=== PATIENT | female | born 1955 | race Caucasian/White ===

== ENCOUNTER 2017-10-06 16:27 | Emergency (ER) | payer OTHER ==
[2017-10-06 17:03] VITALS: BP 114/73; PULSE 90; TEMP 98.1; BMI 26.7
--- NOTE | 2017-10-06 17:04 | PDOC ---
History of Present Illness - General History Source: Patient, Care Provider Exam Limitations: No Limitations - History of Present Illness Initial Comments: 10/06/17 17:09 The patient is a 61 year old female, accompanied by aid, with a significant past medical history of schizophrenia, bipolar disorder, mental retardation, a tacos in her back, seizure disorder, who presents to the emergency department with , left knee pain s/p fall. As per the patients aid, she is unsure where the patient fell. However, she reports the patient may have fell between being transported from the halfway to her program. The patients aid reports she noticed the left knee injury when she was helping the patient use the restroom. As per patients aid, the patient has been able to ambulate normally and has been acting normally per her baseline behavior. She reports the patient is prone to falls secondary to her spine condition. She denies recent fevers, chills, headache or dizziness. She denies recent nausea, vomit, diarrhea or constipation. She denies recent chest pain or shortness of breath. Allergies: Milk, penicillins, sulfa, bee stings Past surgical history: None reported. Social history: Resides in halfway Primary Care Physician: Dr. Elvia Sanchez <Travis Lynn - Last Filed: 10/06/17 17:09> - History of Present Illness Initial Comments: 10/06/17 17:52 Alert no acute distress cheerful and cooperative. Significant MR Head and neck atraumatic Lungs clear CV regular without murmur or gallop Abdomen benign Extremities: There is a contusion over the patella, with pre-patellar effusion. There is an abrasion but there does not appear to be a deep puncture or visible bursal violation. Ligaments are intact, no stress tenderness MCL or LCL, Lockman negative. Distal pulses full. No distal sensory or motor deficits. No other visible or palpable trauma to the extremities. Hips with full range of motion, no restricted Impression: Blunt trauma to the patella, prepatellar effusion, abrasion. Plan: X-ray: No fracture. Wound scrubbed with saline, dressed with bacitracin and Jerome bandage for compression. Antibiotics for presumed bursal involvement. Rest and ice. Orthopedic follow-up. Patient fully ambulatory upon discharge with caregivers. They are aware of the instructions. <Iglesia Villarreal - Last Filed: 10/06/17 17:55> - General Chief Complaint: Injury Stated Complaint: LEFT KNEE PAIN S/P FALL Time Seen by Provider: 10/06/17 16:57 Past History <Travis Lynn - Last Filed: 10/06/17 17:09> - Past Medical History Anemia: Yes Asthma: No Cancer: No Cardiac Disorders: No CVA: No COPD: No CHF: No DVT: No Dementia: Yes Diabetes: No GI Disorders: Yes (CONSTIPATION) Disorders: Yes (OVERACTIVE BLADDER) HTN: No Hypercholesterolemia: No Liver Disease: No Psychiatric Problems: Yes (SCHIZOAFFECTIVE, BIPOLAR, MOOD DISORDERS) Seizures: Yes Thyroid Disease: No - Surgical History Abdominal Surgery: No Appendectomy: No Cardiac Surgery: No Cholecystectomy: No Lung Surgery: No Neurologic Surgery: No Orthopedic Surgery: Yes (rods in back) - Immunization History Td Vaccination: Yes (01/09/13) TDAP Vaccination: No Immunization Up to Date: Yes (2012) - Suicide/Smoking/Psychosocial Hx Smoking Status: No Smoking History: Never smoked Have you smoked in the past 12 months: No Number of Cigarettes Smoked Daily: 0 Hx Alcohol Use: No Drug/Substance Use Hx: No Substance Use Type: None Hx Substance Use Treatment: No <Iglesia Villarreal - Last Filed: 10/06/17 17:55> - Past Medical History Allergies/Adverse Reactions: Allergies Allergy/AdvReac Type Severity Reaction Status Date / Time Milk Containing Products Allergy Verified 10/06/17 16:33 Penicillins Allergy Verified 10/06/17 16:33 Sulfa (Sulfonamide Allergy Verified 10/06/17 16:33 Antibiotics) BEESTING Allergy Uncoded 07/25/17 14:12 Home Medications: Ambulatory Orders Ascorbic Acid [Vitamin C] 500 mg PO DAILY 05/11/15 Aspirin [ASA -] 81 mg PO DAILY 05/11/15 Calcium 500 mg PO BID 05/11/15 Clonazepam 1 mg PO DAILY 05/11/15 Divalproex [Depakote -] 500 mg PO BID 05/11/15 Docusate Sodium [Colace -] 100 mg PO BID 05/11/15 Ferrous Sulfate 325 mg PO DAILY 05/11/15 Lactase [Lactaid] 3,000 unit PO TID 05/11/15 Mirtazapine 30 mg PO HS PRN 05/11/15 Multivitamin [Poly-Vitamin] 1 each PO DAILY 05/11/15 Olanzapine [Zyprexa] 15 mg PO DAILY 05/11/15 Oxybutynin Chloride [Ditropan] 5 mg PO TID 05/11/15 Cephalexin Monohydrate [Keflex] 500 mg PO TID #15 capsule 10/06/17 Cholecalciferol (Vitamin D3) [Vitamin D3] 2,000 unit PO DAILY 10/06/17 Review of Systems - Review of Systems Comments:: 10/06/17 17:10 CONSTITUTIONAL: Absent: fever, no chills, no fatigue EYES: Absent: visual changes ENT: Absent: ear pain, no sore throat CARDIOVASCULAR: Absent: chest pain, no palpitations RESPIRATORY: Absent: cough, no SOB GI: Absent: abdominal pain, no nausea, no vomiting, no constipation, no diarrhea GENITOURINARY: Absent: dysuria, no frequency, no hematuria MUSKULOSKELETAL: Present: +Left knee pain Absent: back pain, neck pain SKIN: Absent: rash NEURO: Absent: headache <Travis Lynn - Last Filed: 10/06/17 17:09> *Physical Exam - Vital Signs Last Vital Signs Temp Pulse Resp BP Pulse Ox 98.1 F 90 16 114/73 100 10/06/17 16:31 10/06/17 16:31 10/06/17 16:31 10/06/17 16:31 10/06/17 16:31 <Travis Lynn - Last Filed: 10/06/17 17:09> - Vital Signs Last Vital Signs Temp Pulse Resp BP Pulse Ox 98.1 F 90 16 114/73 100 10/06/17 16:31 10/06/17 16:31 10/06/17 16:31 10/06/17 16:31 10/06/17 16:31 <Iglesia Villarreal - Last Filed: 10/06/17 17:55> Medical Decision Making - Medical Decision Making 10/06/17 17:30 X-ray shows no patellar fracture but prepatellar swelling and possible bursal effusion. Wound was cleaned and dressed. Compression bandage was applied. Tetanus booster was administered. Antibiotics were begun for presumed bursal involvement. Follow-up orthopedist as directed. <Iglesia Villarreal - Last Filed: 10/06/17 17:55> *DC/Admit/Observation/Transfer - Attestations Scribe Attestion: 10/06/17 17:10 Documentation prepared by Travis Lynn, acting as medical associate for Iglesia Villarreal MD. <Travis Lynn - Last Filed: 10/06/17 17:09> - Discharge Dispostion Admit: No <Iglesia Villarreal - Last Filed: 10/06/17 17:55> Diagnosis at time of Disposition: Traumatic bursitis Contusion, knee Qualifiers: Encounter type: initial encounter Laterality: left Qualified Code(s): S80.02XA - Contusion of left knee, initial encounter - Discharge Dispostion Disposition: HOME Condition at time of disposition: Improved - Prescriptions Prescriptions: Cephalexin Monohydrate [Keflex] 500 mg PO TID #15 capsule - Referrals Referrals: Abdirizak Denis MD [Staff Physician] - - Patient Instructions Printed Discharge Instructions: DI for Contusion, DI for Bursitis Additional Instructions: Clean and dress wound daily, applying Jerome bandage for compression Recheck immediately if sign of infection Antibiotics for 5 days See orthopedist if there is any difficulty ambulating.
[2017-10-06] MEDS ORDERED: CEPHALEXIN MONOHYDRATE 500 MG CAPSULE (UD) PO ONE (17:46)
[2017-10-06] MEDS ORDERED: DIPHTH,PERTUSS(ACELL),TET 0.5 ML DISP.SYRIN IM ONE (17:46)
[2017-10-06] MEDS ORDERED: CEPHALEXIN MONOHYDRATE 250 MG CAPSULE (FP) ONE (17:49)
== END 2017-10-06 18:05 | disposition home or self-care (01) ==
LOC: FER 16:27
PROC: 3E0234Z Introduction of Serum, Toxoid and Vaccine into Muscle, Percutaneous Approach (ICD-10-PCS; principal; 2017-10-06)
DX: S80.02XA Contusion of left knee, initial encounter (principal); M71.562 Other bursitis, not elsewhere classified, left knee
CPT/HCPCS: 73560-TC-LT-FY; 90471; 90715; 99282-25

== ENCOUNTER 2020-12-08 15:05 | Emergency (ER) | payer OTHER ==
[2020-12-08 15:42] VITALS: BP 125/54; PULSE 80; TEMP 99; BMI 31.2
== END 2020-12-08 16:02 | disposition home or self-care (01) ==
LOC: FER 15:05
DX: Z11.52 Encounter for screening for COVID-19 (principal)
CPT/HCPCS: 99284-25; C9803; U0003; U0005

== ENCOUNTER 2022-12-27 13:34 | Emergency (ER) | payer OTHER ==
[2022-12-27 14:23] VITALS: BP 100/64; PULSE 90; RESP 16; TEMP 98.1; BMI 31.2
== END 2022-12-27 14:29 | disposition home or self-care (01) ==
LOC: FER 13:34
DX: R13.10 Dysphagia, unspecified (principal)
CPT/HCPCS: 99283-25

== ENCOUNTER 2024-04-23 12:45 | Emergency (ER) | payer OTHER ==
[2024-04-23 13:02] VITALS: BP 104/77; PULSE 86; RESP 18; TEMP 97.8; BMI 31.2
== END 2024-04-23 13:50 | disposition home or self-care (01) ==
LOC: FER 12:45
DX: N39.0 Urinary tract infection, site not specified (principal)
CPT/HCPCS: 81003; 81015; 87086; 87186; 99283-25

== ENCOUNTER 2024-04-26 07:03 | Day surgery (SDC) | payer OTHER ==
[2024-04-26] MEDS ORDERED: TETRACAINE 0.5% OPHTH SOLN 2 ML BOTTLE ONE (07:17)
[2024-04-26] MEDS ORDERED: BSS (NA/CA/MG/K) BALANCED SALT SOLUTION OPHTH SOLN 15 ML BOTTLE ONE (07:17)
[2024-04-26] MEDS ORDERED: EPI-SHUGARCAINE (EPINEPHRINE 0.025% & LIDOCAINE-PF 0.75%) 4ML ONE (07:17)
[2024-04-26] MEDS ORDERED: BACITRACIN/POLYMYXIN OPH OINT 3.5 GM TUBE ONE (07:17)
[2024-04-26] MEDS ORDERED: NEO/POLYMYX B SULF/DEXAMETH OPHTHALMIC 5ML BOTTLE ONE (07:17)
[2024-04-26] MEDS ORDERED: EPINEPHrine/PF 1 MG/1 ML (1:1,000) AMPULE ONE (07:17)
[2024-04-26] MEDS ORDERED: POVIDONE-IODINE 5% OPHTHALMIC PREP 30 ML SOLUTION ONE (07:17)
[2024-04-26] MEDS ORDERED: BETAXOLOL HCL 0.25% OPHTHALMIC 10 ML DROPSBTL ONE (07:17)
[2024-04-26] MEDS ORDERED: OFLOXACIN 0.3% OPHTHALMIC SOLUTION 5 ML BOTTLE ONE (07:31)
[2024-04-26] MEDS ORDERED: KETOROLAC TROMETHAMINE 0.5% EYE DROP 1 DROP DROPS ONE (07:31)
[2024-04-26] MEDS ORDERED: PHENYLEPHRINE 2.5% OPTHALMIC DROP 2ML BOTTLE ONE (07:31)
[2024-04-26] MEDS ORDERED: TROPICAMIDE 1% OPHTH SOLN 15 ML BOTTLE ONE (07:31)
[2024-04-26] MEDS ORDERED: CYCLOPENTOLATE HCL 1% OPHTH SOLN 2 ML BOTTLE ONE (07:31)
[2024-04-26 07:32] VITALS: BMI 25.4
[2024-04-26] MEDS: TROPICAMIDE 1% OPHTH SOLN 15 ML BOTTLE OS SCH (07:35)
[2024-04-26] MEDS: CYCLOPENTOLATE HCL 1% OPHTH SOLN 2 ML BOTTLE OS SCH (07:35)
[2024-04-26] MEDS: OFLOXACIN 0.3% OPHTHALMIC SOLUTION 5 ML BOTTLE OS SCH (07:35)
[2024-04-26] MEDS: KETOROLAC TROMETHAMINE 0.5% EYE DROP 1 DROP DROPS OS SCH (07:35)
[2024-04-26] MEDS: PHENYLEPHRINE 2.5% OPHTH SOLN 15 ML BOTTLE OS SCH (07:35)
[2024-04-26] MEDS ORDERED: MIDAZOLAM HCL 2 MG/2 ML SINGLE DOSE VIAL ONE (08:30)
[2024-04-26] MEDS ORDERED: ACETAMINOPHEN 325 MG TABLET (FP) PO PRN (09:02)
[2024-04-26 09:37] VITALS: RESP 14; TEMP 97.3
[2024-04-26 09:39] VITALS: BP 117/70; PULSE 83
== END 2024-04-26 09:50 ==
LOC: FASU 07:03
PROVIDERS: ATTEND Ophthalmology
PROC: 08RK3JZ Replacement of Left Lens with Synthetic Substitute, Percutaneous Approach (ICD-10-PCS; principal; 2024-04-26 08:39)
DX: H25.12 Age-related nuclear cataract, left eye (principal)
CPT/HCPCS: 66984; V2632

== ENCOUNTER 2024-05-17 07:50 | Day surgery (SDC) | payer OTHER ==
[2024-05-17] MEDS ORDERED: KETOROLAC TROMETHAMINE 0.5% EYE DROP 1 DROP DROPS ONE (07:57)
[2024-05-17] MEDS ORDERED: OFLOXACIN 0.3% OPHTHALMIC SOLUTION 5 ML BOTTLE ONE (07:57)
[2024-05-17] MEDS ORDERED: PHENYLEPHRINE 2.5% OPTHALMIC DROP 2ML BOTTLE ONE (07:57)
[2024-05-17] MEDS ORDERED: CYCLOPENTOLATE HCL 1% OPHTH SOLN 2 ML BOTTLE ONE (07:57)
[2024-05-17] MEDS ORDERED: TROPICAMIDE 1% OPHTH SOLN 15 ML BOTTLE ONE (07:57)
[2024-05-17] MEDS: TROPICAMIDE 0.5% OPHTHALMIC SOLN 15 ML BOTTLE OD ONE ×3 (08:25→08:35)
[2024-05-17] MEDS: OFLOXACIN 0.3% OPHTHALMIC SOLUTION 5 ML BOTTLE OD ONE ×3 (08:25→08:35)
[2024-05-17] MEDS: CYCLOPENTOLATE HCL 1% OPHTH SOLN 2 ML BOTTLE OD ONE ×3 (08:25→08:35)
[2024-05-17] MEDS: PHENYLEPHRINE 2.5% OPHTH SOLN 15 ML BOTTLE OD ONE ×3 (08:25→08:35)
[2024-05-17] MEDS: KETOROLAC TROMETHAMINE 0.5% EYE DROP 1 DROP DROPS OD ONE ×3 (08:25→08:35)
[2024-05-17] MEDS ORDERED: BETAXOLOL HCL 0.25% OPHTHALMIC 10 ML DROPSBTL ONE (08:27)
[2024-05-17] MEDS ORDERED: EPI-SHUGARCAINE (EPINEPHRINE 0.025% & LIDOCAINE-PF 0.75%) 4ML ONE (08:27)
[2024-05-17] MEDS ORDERED: TETRACAINE 0.5% OPHTH SOLN 2 ML BOTTLE ONE (08:27)
[2024-05-17] MEDS ORDERED: BACITRACIN/POLYMYXIN OPH OINT 3.5 GM TUBE ONE (08:27)
[2024-05-17] MEDS ORDERED: POVIDONE-IODINE 5% OPHTHALMIC PREP 30 ML SOLUTION ONE (08:27)
[2024-05-17] MEDS ORDERED: NEO/POLYMYX B SULF/DEXAMETH OPHTHALMIC 5ML BOTTLE ONE (08:28)
[2024-05-17] MEDS ORDERED: MIDAZOLAM HCL 2 MG/2 ML SINGLE DOSE VIAL ONE ×2 (09:31→09:38)
[2024-05-17] MEDS ORDERED: ACETAMINOPHEN 325 MG TABLET (FP) PO PRN (09:59)
[2024-05-17 10:07] VITALS: RESP 18; TEMP 97.6
[2024-05-17 10:33] VITALS: BP 122/71; PULSE 72
[2024-05-17] MEDS ORDERED: KETOROLAC TROMETHAMINE 0.5% EYE DROP 1 DROP DROPS OD SCH (12:00)
[2024-05-17] MEDS ORDERED: OFLOXACIN 0.3% OPHTHALMIC SOLUTION 5 ML BOTTLE OD SCH (12:00)
[2024-05-17] MEDS ORDERED: TROPICAMIDE 1% OPHTH SOLN 15 ML BOTTLE OD SCH (12:00)
[2024-05-17] MEDS ORDERED: CYCLOPENTOLATE HCL 1% OPHTH SOLN 2 ML BOTTLE OD SCH (12:00)
[2024-05-17] MEDS ORDERED: PHENYLEPHRINE 2.5% OPHTH SOLN 15 ML BOTTLE OD SCH (12:00)
== END 2024-05-17 10:37 | disposition home or self-care (01) ==
LOC: FASU 07:50
PROVIDERS: ATTEND Ophthalmology
PROC: 08RJ3JZ Replacement of Right Lens with Synthetic Substitute, Percutaneous Approach (ICD-10-PCS; principal; 2024-05-17 09:41)
DX: H25.11 Age-related nuclear cataract, right eye (principal)
CPT/HCPCS: 66984; V2632